=== PATIENT | female | born 1990 | race Caucasian/White ===

== ENCOUNTER 2021-02-14 05:43 | Inpatient (IN) | payer BC, MEDICAID ==
[2021-02-14] MEDS ORDERED: TERBUTALINE 1 MG/ML VIAL SQ PRN (05:57)
[2021-02-14] MEDS ORDERED: OXYTOCIN 10 UNIT/ML 1 ML VIAL IM PRN (05:57)
[2021-02-14] MEDS ORDERED: LIDOCAINE 0.5% (PF) 5 MG/ML (50 ML SDV) SQ PRN (05:57)
[2021-02-14] MEDS ORDERED: METHYLERGONOVINE 0.2 MG/ML 1 ML AMP IM PRN (05:57)
[2021-02-14] MEDS ORDERED: CARBOPROST TROMETHAMINE 250 MCG/ML 1 ML AMP IM PRN (05:57)
[2021-02-14] MEDS ORDERED: OXYTOCIN 30 UNITS/500 ML NS 30 UNIT in SALINE 1 500ML.BAG IV SCH ×2 (05:57→11:56)
[2021-02-14] MEDS ORDERED: LACTATED RINGERS 1,000 ML IV SCH (05:57)
[2021-02-14 06:14] LABS: Basophils % (A) 0 %; Eosinophils # (A) 0.1 k/uL (0-0.7); Eosinophils % (A) 1 %; HCT 38.5 % (34.0-46.0); HGB 12.5 gm/dL (11.4-16.0); Lymphocytes # (A) 1.6 k/uL (1.0-4.8); Lymphocytes % (A) 24 %; MCHC 32.6 g/dL (31.0-37.0); Monocytes # (A) 0.5 k/uL (0-1.0); Monocytes % (A) 7 %; Neutrophils # (A) 4.4 k/uL (1.3-7.7); Neutrophils % (A) 65 %; Platelet Count 310 k/uL (150-450); RBC 4.33 m/uL (3.80-5.40); RDW 14.4 % (11.5-15.5); WBC 6.7 k/uL (3.8-10.6)
--- NOTE | 2021-02-14 06:18 | P.HPOB ---
History of Present Illness H&P Date: 02/14/21 Chief Complaint: Induction of labor for growth restriction This patient is a pleasant 30-year-old 3 para 1 female estimated date of confinement 02/28/2021 estimated gestational age 38 weeks who presents to labor and delivery for recommended induction of labor secondary to growth restriction. 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 Patient referred to maternal- medicine and evaluation was normal including a cardiac echo. However, most recent ultrasound per maternal medicine showed the estimated weight of 5 lbs. 3 oz. and they felt this was growth restricted and recommended delivery after 38 weeks. Patient also had another ultrasound in my office that did demonstrate a possible nuchal cord. After discussion with the patient and her we elected to proceed with delivery at 38 weeks for growth restriction. testing including nonstress test and been normal. care has otherwise been uncomplicated and she's had no seizures during this . 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 History of Any Multi-Drug Resistant Organisms: None Reported Past Surgical History: No Surgical Hx Reported Past Anesthesia/Blood Transfusion Reactions: No Reported Reaction Past Psychological History: No Psychological Hx Reported Smoking Status: Never smoker Past Alcohol Use History: None Reported Past Drug Use History: None Reported - Past Family History Father History Unknown: Yes Family Medical History: Hypertension Medications and Allergies Home Medications Medication Instructions Recorded Confirmed Type Docusate [Colace] 1 tab PO DAILY PRN 06/13/16 02/14/21 History Agp-Mmjs-Orrvu Acid 1 tab PO DAILY 06/13/16 02/14/21 History [-U Capsule] Vitamin D3/Folic Acid [Zavara 1 each PO BID 02/14/21 02/14/21 History 5,750 Unit-1 mg Cap] lamoTRIgine [LaMICtal] 275 mg PO BID 02/14/21 02/14/21 History Allergies Allergy/AdvReac Type Severity Reaction Status Date / Time No Known Allergies Allergy Verified 02/14/21 05:55 Exam Intake and Output 0402/13/21 02/14/21 14:59 22:59 06:59 Other: Weight 84.822 kg - OBG Physical Exam Abdomen: bowel sounds normal, no diffuse tenderness, no bruit present, no guarding noted, no hepatomegaly, no splenomegaly, no mass Vulva: both: normal Cervix: Cervix is 2 cm 50% effaced -2 station Uterus: enlarged (Fundal height is 36 cm) Results blood work shows she is O positive, rubella immune, RPR nonreactive, hepatitis B negative, Glucola was normal, group B strep was negative, anatomy ultrasound was normal including a normal cardiac echo. Most recent ultrasound per maternal medicine show 5 lbs. 3 oz. consistent with growth restriction. Assessment and Plan Assessment: This is a pleasant 30-year-old 3 para 1 female 38-0/7 weeks gestation admitted to labor and delivery for recommended induction of labor due to growth restriction. Plan is induction of labor and anticipate vaginal delivery. Patient also has a Lamictal dosage taper per her neurologist for . (1) 38 weeks gestation of Current Visit: Yes Status: Acute Code(s): Z3A.38 - 38 WEEKS GESTATION OF SNOMED Code(s): 53896928 (2) growth restriction Current Visit: Yes Status: Acute Code(s): VAM9233 - SNOMED Code(s): 85840540 (3) Encounter for planned induction of labor Current Visit: Yes Status: Acute Code(s): Z34.90 - ENCNTR FOR SUPRVSN OF NORMAL , UNSP, UNSP TRIMESTER SNOMED Code(s): 130760418
[2021-02-14] MEDS ORDERED: diphenhydrAMINE 25 MG CAP PO PRN (11:56)
[2021-02-14] MEDS ORDERED: diphenhydrAMINE 50 MG/ML 1 ML VIAL IVP PRN (11:56)
[2021-02-14] MEDS ORDERED: BENZOCAINE/MENTHOL SPRAY 1 GM/SPRAY AEROSOL TOPICAL PRN (11:56)
[2021-02-14] MEDS ORDERED: bisacodyL 10 MG SUPP RECTAL PRN (11:56)
[2021-02-14] MEDS ORDERED: ZOLPIDEM 5 MG TAB PO PRN (11:56)
[2021-02-14] MEDS ORDERED: SIMETHICONE 80 MG CHEWABLE PO PRN (11:56)
[2021-02-14] MEDS ORDERED: HYDROCORTISONE 2.5% RECTAL CREAM 30 GM TUBE RECTAL PRN (11:56)
[2021-02-14] MEDS ORDERED: IBUPROFEN 600 MG TAB PO PRN (11:56)
[2021-02-14] MEDS ORDERED: LANOLIN CREAM 5 GM TUBE TOPICAL PRN (11:56)
[2021-02-14] MEDS: SENNOSIDES-DOCUSATE SODIUM 1 EACH TAB PO SCH ×2 (12:18→20:03)
[2021-02-14] MEDS: ACETAMINOPHEN TAB 325 MG TAB PO PRN ×2 (12:25→20:03)
--- NOTE | 2021-02-14 12:53 | P.PROBDLV ---
Vaginal Delivery Note - . Vaginal Delivery Note: Normal vaginal delivery viable female Apgars 8 and 9 delivery time was 1131 hrs. Please see dictated H&P for intimate details of this patient's admission. Brief summary this is a pleasant 30-year-old 3 para 1 female estimated gestational age 38 weeks who presents to labor and delivery for induction of labor secondary to growth restriction. I admission patient is 2 cm dilated and thick has artificial rupture membranes for clear fluid. Labor is induced with Pitocin per protocol. Labor progresses quickly and she does not request anything for pain control. Patient gets to complete and with 1 push pushes the head to the perineum. Posterior perineum is supported and we have controlled delivery of the 's head over the intact perineum. Mouth and nares are bulb suctioned. There is no evidence of a nuchal cord. With minimal effort the patient spontaneously delivers the anterior and posterior shoulder and rest this infant's body. This is a vigorous viable female Apgars are 8 and 9 delivery time was 1131 hrs. Infant has spontaneous respirations and good cry and grossly does appear normal. After delivery of the the umbilical cord is allowed to quit pulsating is then doubly clamped and cut appears to be trivascular. The placenta is then spontaneously delivered intact. Inspection of perineum shows a superficial bilateral periurethral lacerations or require repair. Estimated blood loss is 50 mL. There are no complications. All counts correct 3. and mother stable delivery room.
--- NOTE | 2021-02-14 16:46 | P.DS ---
Providers Date of admission: 02/14/21 05:43 Expected date of discharge: 02/15/21 Attending physician: Maksim Scott Primary care physician: Stated None - Discharge Diagnosis(es) (1) 38 weeks gestation of Current Visit: Yes Status: Acute (2) growth restriction Current Visit: Yes Status: Acute (3) Encounter for planned induction of labor Current Visit: Yes Status: Acute Hospital Course: Please see dictated H&P for intimate details of this patients admission. She is a pleasant 30 yr female admitted for induction secondary to growth restriction. She has uncomplicated induction of labor and quickly went on to have a vaginal delivery of a viable female . patient requested to go home on PP day #1. Procedures: Induction of labor an normal vaginal delivery. Plan - Discharge Summary New Discharge Prescriptions: New Ibuprofen [Motrin] 600 mg PO Q6H PRN #30 tab PRN Reason: Pain No Action Wqz-Qhjp-Ogffi Acid [-U Capsule] 1 tab PO DAILY Docusate [Colace] 1 tab PO DAILY PRN PRN Reason: constipation lamoTRIgine [LaMICtal] 275 mg PO BID Vitamin D3/Folic Acid [Zavara 5,750 Unit-1 mg Cap] 1 each PO BID Discharge Medication List Docusate [Colace] 1 tab PO DAILY PRN 06/13/16 [History] Wzo-Fvma-Dneiq Acid [-U Capsule] 1 tab PO DAILY 06/13/16 [History] Ibuprofen [Motrin] 600 mg PO Q6H PRN #30 tab 02/14/21 [Rx] Vitamin D3/Folic Acid [Zavara 5,750 Unit-1 mg Cap] 1 each PO BID 02/14/21 [History] lamoTRIgine [LaMICtal] 275 mg PO BID 02/14/21 [History] Follow up Appointment(s)/Referral(s): Maksim Scott MD [STAFF PHYSICIAN] - 03/28/21 1:45 pm Patient Instructions/Handouts: Vaginal Delivery (DC) Activity/Diet/Wound Care/Special Instructions: No intercourse or anything per vagina for 6 weeks. Please call if any fever, chills, excessive vaginal bleeding, and/or abdominal pain Discharge Disposition: HOME SELF-CARE
[2021-02-14] MEDS: lamoTRIgine 100 MG TAB PO SCH (21:50)
[2021-02-14] MEDS: lamoTRIgine 25 MG TAB PO SCH (21:50)
[2021-02-15] MEDS: SENNOSIDES-DOCUSATE SODIUM 1 EACH TAB PO SCH (08:24)
[2021-02-15] MEDS: lamoTRIgine 25 MG TAB PO SCH ×2 (10:20→21:04)
[2021-02-15] MEDS: lamoTRIgine 100 MG TAB PO SCH ×2 (10:20→21:03)
[2021-02-15 17:42] VITALS: BP 119/72; PULSE 64; RESP 20; TEMP 97.9
[2021-02-16] MEDS: SENNOSIDES-DOCUSATE SODIUM 1 EACH TAB PO SCH (02:25)
== END 2021-02-15 23:30 | disposition home or self-care (01) | DRG 805 ==
LOC: 4FBP 05:43
PROVIDERS: ADMIT Obstetrics & Gynecology; ATTEND Obstetrics & Gynecology
PROC: 0UQMXZZ Repair Vulva, External Approach (ICD-10-PCS; principal; 2021-02-14)
PROC: 3E0R3BZ Introduction of Anesthetic Agent into Spinal Canal, Percutaneous Approach (ICD-10-PCS; principal; 2021-02-14)
PROC: 10907ZC Drainage of Amniotic Fluid, Therapeutic from Products of Conception, Via Natural or Artificial Opening (ICD-10-PCS; principal; 2021-02-14)
PROC: 00HU33Z Insertion of Infusion Device into Spinal Canal, Percutaneous Approach (ICD-10-PCS; principal; 2021-02-14)
PROC: 10E0XZZ Delivery of Products of Conception, External Approach (ICD-10-PCS; principal; 2021-02-14)
PROC: 3E033VJ Introduction of Other Hormone into Peripheral Vein, Percutaneous Approach (ICD-10-PCS; principal; 2021-02-14)
DX: O36.5930 Maternal care for other known or suspected poor fetal growth, third trimester, not applicable or unspecified (principal); Q28.3 Other malformations of cerebral vessels; Z37.0 Single live birth; O99.354 Diseases of the nervous system complicating childbirth; O71.82 Other specified trauma to perineum and vulva; G40.909 Epilepsy, unspecified, not intractable, without status epilepticus; Z3A.38 38 weeks gestation of pregnancy; Z82.49 Family history of ischemic heart disease and other diseases of the circulatory system; Z79.899 Other long term (current) drug therapy
CPT/HCPCS: 85025; 86850; 86900; 86901; 88307